=== PATIENT | female | born 2000 | race Two or more races ===

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

== ENCOUNTER 2023-04-09 16:52 | Emergency (ER) | payer BC, OTHER ==
[~2023-04-09] VITALS: Ht 157.5 cm; Wt 80.0 kg
[2023-04-09 17:16] VITALS: BP 125/74; PULSE 78; RESP 14; TEMP 97.6; O2SAT 100
== END 2023-04-09 18:58 | disposition home or self-care (01) ==
LOC: ER 16:52
DX: R51.9 Headache, unspecified (principal); F07.81 Postconcussional syndrome; F12.10 Cannabis abuse, uncomplicated; V43.52XA Car driver injured in collision with other type car in traffic accident, initial encounter; Y93.89 Activity, other specified; Y92.488 Other paved roadways as the place of occurrence of the external cause; Y99.8 Other external cause status